=== PATIENT | male | born 1970 | race Two or more races ===

== ENCOUNTER 2023-05-16 13:03 | Emergency (ER) | payer MEDICAID, OTHER ==
[~2023-05-16] VITALS: Ht 175.3 cm; Wt 80.4 kg
[2023-05-16 13:30] VITALS: BP 151/86; RESP 18; O2SAT 99
[2023-05-16 13:54] VITALS: PULSE 54
[2023-05-16 14:19] LABS: Urine Bacteria NONE SEEN /hpf (None Seen); Urine Blood Negative /uL (Negative); Urine Clarity Clear (Clear); Urine Protein, UAD Negative (Negative); Urine Specific Gravity 1.008 (1.001-1.035); Urine Urobilinogen Normal (Negative); Urine WBC <1 /hpf (0 - 3); Urine pH 7.5 (5.0-8.0)
[2023-05-16 14:21] LABS: Urine Color Straw (Yellow)
== END 2023-05-16 18:51 | disposition left against medical advice (07) ==
LOC: ER 13:03
DX: R07.89 Other chest pain (principal); R20.2 Paresthesia of skin; R06.09 Other forms of dyspnea; Z53.21 Procedure and treatment not carried out due to patient leaving prior to being seen by health care provider
CPT/HCPCS: 81001; 93005